=== PATIENT | female | born 1970 | race Two or more races ===

== ENCOUNTER 2019-04-30 15:20 | Emergency (ER) | payer MEDICAID ==
[~2019-04-30] VITALS: Ht 157.5 cm; Wt 207.7 kg
[~2019-04-30 15:20] MED LIST: IBUPROFEN600 MG ORAL; NITROFURANTOIN100 M2 ORAL; ONDANSETRON ODT4 MG BC; TRAMADOL HCL50 MG ORAL; TYLENOL325 MG ORAL
--- NOTE | 2019-04-30 15:30 | NUR ---
ED Nurse Note: Pt ambulated to ED with the c/o of fever, chills and lowback pain started last night. Pt is AOx4, able to verbalize her needs and able to follow commands. Placed pt on bed and gown, hooked to quality assurance monitor final.
--- NOTE | 2019-04-30 15:38 | Emergency Room Report ---
History of Present Illness General Chief Complaint: Lower Back Pain or Injury Source: Patient Present Illness HPI Patient is a 48-year-old female who presents after increased left-sided flank pain. She reports having dysuria for several weeks. She reports having worsening flank pain associated with some fever since yesterday. She had been taking Aleve without any improvement. She denies any headache or cough. She denies vomiting. She states she is not taking any other medications. Reports having severe flank pain. She denies being . Allergies: Coded Allergies: No Known Allergies (Unverified , 03/02/18) Patient History Past Medical History: see triage record Last Menstrual Period: 04/27/19 Now: No Reviewed Nursing Documentation: PMH: Agreed; PSxH: Agreed Nursing Documentation-PMH Past Medical History: No History, Except For Hx Hypertension: Yes Review of Systems All Other Systems: negative except mentioned in HPI Physical Exam Vital Signs Date Time Temp Pulse Resp B/P (MAP) Pulse Ox O2 Delivery O2 Flow Rate FiO2 04/30/19 15:29 98.2 116 19 162/98 (119) 99 Room Air Sp02 EP Interpretation: reviewed, normal General Appearance: normal inspection, well appearing, no apparent distress, alert, GCS 15, non-toxic Head: atraumatic ENT: normal ENT inspection, hearing grossly normal, normal voice Neck: normal inspection, full range of motion, supple, no bony tend Respiratory: normal inspection, lungs clear, normal breath sounds, no respiratory distress, no retraction, no wheezing Cardiovascular #1: regular rate, rhythm, no edema Gastrointestinal: normal inspection, normal bowel sounds, non tender, soft, no guarding, no hernia Genitourinary: no CVA tenderness Musculoskeletal: normal inspection, back normal, normal range of motion Neurologic: alert, motor strength/tone normal, car dealer III-XII nml as tested, responsive, speech normal, normal inspection Psychiatric: normal inspection, judgement/insight normal, mood/affect normal Medical Decision Making Diagnostic Impression: Primary Impression: UTI (urinary tract infection) ER Course Patient is a 48-year-old female presents after increased left-sided flank pain associate with dysuria. Differential diagnosis include was not limited to urinary tract infection, pyelonephritis, dehydration, diverticulitis among others. Because of complexity of patient's case laboratory tests and imaging studies were ordered. Patient was noted to have some pain to the left CVA. She was given IV fluids as well as IV antibiotics. Patient appears to have some evidence of urinary infection. She was given Rocephin IV. She was also given antipyretics. She was noted to have some improvement. She was given prescription for medications for further antibiotics. She is advised to follow- up for recheck in the next 1 to 2 days with her primary care physician. She is advised to return if worse. Last Vital Signs Date Time Temp Pulse Resp B/P (MAP) Pulse Ox O2 Delivery O2 Flow Rate FiO2 04/30/19 15:29 98.2 116 19 162/98 (119) 99 Room Air Status: improved Disposition: HOME, SELF-CARE Condition: Stable Scripts Hydrocodone Bit/Acetaminophen 5-325* (NORCO 5-325*) 1 Each Tablet 1 TAB ORAL Q6H PRN for For Pain, #10 TAB 0 Refills Prov: Vinod Mccall MD 04/30/19 Cephalexin* (KEFLEX*) 500 Mg Capsule 500 MG ORAL EVERY 6 HOURS, #28 CAP Prov: Vinod Mccall MD 04/30/19 Vinod Mccall MD Apr 30, 2019 15:38
[2019-04-30] MEDS ORDERED: Ketorolac 30mg Inj IV ONE (15:45)
[2019-04-30] MEDS ORDERED: cefTRIAXone 2 GM in NS 110 ML IV ONE (15:45)
[2019-04-30] MEDS ORDERED: Acetaminophen 500mg (ES) tab ORAL ONE (15:45)
[2019-04-30 16:17] LABS: EOSINOPHILS % (AUTO) 0.1 % (0.0-3.0); HEMATOCRIT 38.8 % (37.0-47.0); HEMOGLOBIN 13.5 G/DL (12.0-16.0); LYMPHOCYTES % (AUTO) 8.1 % (20.0-45.0); MEAN CORPUSCULAR VOLUME 89 FL (80-99); MONOCYTES % (AUTO) 7.9 % (1.0-10.0); NEUTROPHILS % (AUTO) 82.8 % (45.0-75.0); PLATELET COUNT 260 K/UL (150-450); RED BLOOD COUNT 4.37 M/UL (4.20-5.40); RED CELL DISTRIBUTION WIDTH 11.2 % (11.6-14.8); WHITE BLOOD COUNT 10.7 K/UL (4.8-10.8)
--- NOTE | 2019-04-30 16:30 | NUR ---
ED Nurse Note: Pt on bed, awake and alert. Still on IV hydration and antibiotics, tolerated and infusing well. Will continue to monitor.
[2019-04-30 16:45] VITALS: BP 139/88
[2019-04-30 16:51] LABS: APPEARANCE,URINE SLIGHTLY CLOUDY; BILIRUBIN, URINE NEGATIVE (NEGATIVE); COLOR,URINE PALE YELLOW; GLUCOSE, URINE (UA) NEGATIVE (NEGATIVE); KETONES,URINE NEGATIVE (NEGATIVE); LEUKOCYTE ESTERASE ,URINE 2+ (NEGATIVE); NITRITE,URINE NEGATIVE (NEGATIVE); PH,URINE 6 (4.5-8.0); PROTEIN,URINE 1+ (NEGATIVE); UROBILINOGEN,URINE NORMAL MG/DL (0.0-1.0)
[2019-04-30 16:52] LABS: ANION GAP 11 mmol/L (5-15); BLOOD UREA NITROGEN 13 mg/dL (7-18); CALCIUM 8.8 MG/DL (8.5-10.1); CARBON DIOXIDE 26 MMOL/L (21-32); CHLORIDE 102 MMOL/L (98-107); CREATININE 0.8 MG/DL (0.55-1.30); POTASSIUM 3.2 MMOL/L (3.5-5.1); SODIUM 139 MMOL/L (136-145)
[2019-04-30] MEDS ORDERED: Cephalexin 500mg cap ORAL ONE (17:00)
[2019-04-30 17:04] LABS: ALANINE AMINOTRANSFERASE 21 U/L (12-78); ALBUMIN 3.9 G/DL (3.4-5.0); ALBUMIN/GLOBULIN RATIO 1.1 (1.0-2.7); ALKALINE PHOSPHATASE 61 U/L (46-116); ASPARTATE AMINO TRANSFERASE 18 U/L (15-37); BILIRUBIN,TOTAL 0.5 MG/DL (0.2-1.0); CKMB 1.4 NG/ML (0.0-3.6); CREATINE KINASE 151 U/L (26-308)
[2019-04-30] MEDS ORDERED: CEPHALEXIN500 MG ORAL (17:08)
[2019-04-30] MEDS ORDERED: NORCO 5-325 TA1 EACH ORAL (17:08)
--- NOTE | 2019-04-30 17:20 | NUR ---
ED Nurse Note: Pt denied pain upon assessment. Pt is calm; VSS, no signs of any respiratory distress. latest temp is 100F, ERMD aware.
--- NOTE | 2019-04-30 17:40 | NUR ---
ER DISCHARGE NOTE: Pt is cleared to be discharged per ERMD, pt is aox4, on room air, with stable vital signs. pt was given dc and prescription instructions, pt was able to verbalize understanding, pt id band and iv site removed without complications. pt is able to ambulate with steady gait. pt took all belongings. Pt left ED with significant other.
[2019-04-30 17:46] VITALS: BP 129/84
== END 2019-04-30 17:40 | disposition home or self-care (01) ==
LOC: EMR 16:06
DX: N39.0 Urinary tract infection, site not specified (principal); I10 Essential (primary) hypertension
CPT/HCPCS: 36415; 80053; 81003; 81025; 82550; 82553; 83605; 84484; 85025; 87040; 87086; 87181; 93005; 96365; 96375; J0696; J1885; J7030; Z7502; 99284; J8499

== ENCOUNTER 2020-04-28 11:28 | Emergency (ER) | payer MEDICAID ==
[~2020-04-28] VITALS: Ht 157.5 cm; Wt 68.0 kg
[~2020-04-28 11:28] MED LIST changes: +CEPHALEXIN500 MG ORAL; +IBUPROFEN600 M1 ORAL; +NORCO 5-325 TA1 EACH ORAL
--- NOTE | 2020-04-28 11:51 | NUR ---
ED Nurse Note: Pt walked in with s/o who was diagnosed with covid on the 04/25. She walks with a steady gait. SPO2 is 100% on RA. She states that she has been sick with 'the flu' for 3 days. She states that she has not taken a flu test and that he has generalized body aches and a headaches for the last three days. She is tachypenic RR 30 in assement and has moist skin. She is on the tele monitor HR 106. Cohorting utilized of S/O who cohabitates with the pt.
[2020-04-28 11:57] VITALS: BP 161/101
[2020-04-28] MEDS ORDERED: DiphenhydrAMINE 50mg/ml Inj IVP ONE (12:45)
[2020-04-28] MEDS ORDERED: Metoclopramide 10mg/2ml Inj IVP ONE (12:45)
[2020-04-28] MEDS ORDERED: Ketorolac 30mg Inj IV ONE (12:45)
[2020-04-28 13:30] LABS: EOSINOPHILS % (AUTO) 2.2 % (0.0-3.0); HEMATOCRIT 39.5 % (37.0-47.0); HEMOGLOBIN 13.6 G/DL (12.0-16.0); LYMPHOCYTES % (AUTO) 12.3 % (20.0-45.0); MEAN CORPUSCULAR VOLUME 89 FL (80-99); MONOCYTES % (AUTO) 8.4 % (1.0-10.0); NEUTROPHILS % (AUTO) 76.1 % (45.0-75.0); PLATELET COUNT 277 K/UL (150-450); RED BLOOD COUNT 4.42 M/UL (4.20-5.40); RED CELL DISTRIBUTION WIDTH 12.6 % (11.6-14.8)
[2020-04-28 13:39] LABS: ANION GAP 9 mmol/L (5-15); BLOOD UREA NITROGEN 12 mg/dL (7-18); CALCIUM 8.5 MG/DL (8.5-10.1); CARBON DIOXIDE 24 MMOL/L (21-32); CHLORIDE 105 MMOL/L (98-107); CREATININE 0.8 MG/DL (0.55-1.30); POTASSIUM 3.5 MMOL/L (3.5-5.1); SODIUM 138 MMOL/L (136-145)
--- NOTE | 2020-04-28 13:44 | NUR ---
ED Nurse Note:urine sent to labs
[2020-04-28 13:54] LABS: ALANINE AMINOTRANSFERASE 24 U/L (12-78); ALBUMIN 3.8 G/DL (3.4-5.0); ALBUMIN/GLOBULIN RATIO 1.1 (1.0-2.7); ALKALINE PHOSPHATASE 72 U/L (46-116); ASPARTATE AMINO TRANSFERASE 18 U/L (15-37); BILIRUBIN,TOTAL 0.4 MG/DL (0.2-1.0); CREATINE KINASE 174 U/L (26-308); FERRITIN 31 NG/ML (8-388); LACTATE DEHYDROGENASE 147 U/L (81-234)
--- NOTE | 2020-04-28 14:19 | Diagnostic Imaging Report ---
Indication: Dyspnea Technique: One view of the chest Comparison: none Findings: Lungs and pleural spaces are clear. Heart size is normal. Impression: No acute process
--- NOTE | 2020-04-28 14:20 | Emergency Room Report ---
History of Present Illness General Chief Complaint: Upper Respiratory Illness Source: Patient Present Illness HPI The patient presents with cough and shortness of breath. Her tested positive for Covid recently. He has been ill for 4 days. She has been ill for 3 days. She has generalized malaise and weakness. She is felt feverish. She denies any nausea, vomiting or diarrhea. There is no dysuria. There are no skin rashes. She is quite anxious as she is worried about the diagnosis of Covid. Her cough is minimally productive. The patient has heard herself wheezing. She rates the pain in her body 8/10 at this time. It is generalized aching. Last menstruation 1 week ago and normal for her. No sore throat, palpitations, abdominal pain, visual changes, dizziness, headach e. 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: No Patient History Past Medical History: see triage record Social History: Denies: smoking Social History Narrative Last Menstrual Period: 1 week ago Now: No Reviewed Nursing Documentation: PMH: Agreed; PSxH: Agreed Nursing Documentation-PMH Past Medical History: No History, Except For Hx Hypertension: Yes Review of Systems All Other Systems: negative except mentioned in HPI Physical Exam Vital Signs Date Time Temp Pulse Resp B/P (MAP) Pulse Ox O2 Delivery O2 Flow Rate FiO2 04/28/20 11:47 96.1 114 22 167/106 (126) 99 Room Air Sp02 EP Interpretation: reviewed, normal General Appearance: well appearing, no apparent distress, GCS 15, other - Anxious Head: normocephalic Eyes: bilateral eye normal inspection, bilateral eye PERRL, bilateral eye EOMI ENT: normal pharynx, moist mucus membranes Neck: supple Respiratory: chest non-tender, lungs clear, normal breath sounds Cardiovascular #1: regular rate, rhythm Cardiovascular #2: 2+ radial (L) Gastrointestinal: normal inspection, normal bowel sounds, non tender, no mass, non-distended Musculoskeletal: back normal, normal range of motion, no calf tenderness, gait/station normal Neurologic: alert, oriented x3, grossly normal Psychiatric: anxious Skin: no rash, warm/dry Medical Decision Making Diagnostic Impression: Primary Impression: Upper respiratory tract infection due to COVID-19 virus Additional Impression: Bronchospasm ER Course The patient presents with cough subjective fevers and anxiety after being exposed to her with Covid. Differential includes COVID-19 pneumonia, bronchospasm, other viral upper respiratory infection, anxiety amongst others. Evaluation with EKG, chest x-ray and labs. Patient will be evaluated for inflammatory markers. The patient is treated with Toradol, Reglan and Benadryl. EKG without injury. Chest x-ray no infiltrates. Labs unremarkable except for minimally elevated white count. Inflammatory markers are negative. Patient greatly improved with treatment in the emergency department. This patient was evaluated in the context of the global COVID-19 pandemic, which necessitated consideration that the patient might be at risk for infection with the [id number] virus that causes COVID-19. Institutional protocols and algorithms that pertain to the evaluation of patients at risk for COVID-19 and the state of rapid change based on information released by multiple regulatory bodies including the CDC and federal and state organizations. These policies and algorithms were followed during the patient's care in the ED. Discussed treatment plan, quarantine and follow-up. Patient stable for outpatient observation and treatment. Laboratory Tests Test 04/28/20 12:38 04/28/20 12:55 White Blood Count 11.0 K/UL (4.8-10.8) H Red Blood Count 4.42 M/UL (4.20-5.40) Hemoglobin 13.6 G/DL (12.0-16.0) Hematocrit 39.5 % (37.0-47.0) Mean Corpuscular Volume 89 FL (80-99) Mean Corpuscular Hemoglobin 30.7 PG (27.0-31.0) Mean Corpuscular Hemoglobin Concent 34.4 G/DL (32.0-36.0) Red Cell Distribution Width 12.6 % (11.6-14.8) Platelet Count 277 K/UL (150-450) Mean Platelet Volume 9.3 FL (6.5-10.1) Neutrophils (%) (Auto) 76.1 % (45.0-75.0) H Lymphocytes (%) (Auto) 12.3 % (20.0-45.0) L Monocytes (%) (Auto) 8.4 % (1.0-10.0) Eosinophils (%) (Auto) 2.2 % (0.0-3.0) Basophils (%) (Auto) 1.0 % (0.0-2.0) Prothrombin Time 10.7 SEC (9.30-11.50) Prothrombin Time INR 1.0 (0.9-1.1) Activated Partial Thromboplast Time 24 SEC (23-33) Sodium Level 138 MMOL/L (136-145) Potassium Level 3.5 MMOL/L (3.5-5.1) Chloride Level 105 MMOL/L (98-107) Carbon Dioxide Level 24 MMOL/L (21-32) Anion Gap 9 mmol/L (5-15) Blood Urea Nitrogen 12 mg/dL (7-18) Creatinine 0.8 MG/DL (0.55-1.30) Estimated Glomerular Filtration Rate > 60 mL/min (>60) Glucose Level 108 MG/DL (74-106) H Calcium Level 8.5 MG/DL (8.5-10.1) Magnesium Level 2.0 MG/DL (1.8-2.4) Ferritin 31 NG/ML (8-388) Total Bilirubin 0.4 MG/DL (0.2-1.0) Aspartate Amino Transferase (AST) 18 U/L (15-37) Alanine Aminotransferase (ALT) 24 U/L (12-78) Alkaline Phosphatase 72 U/L (46-116) Lactate Dehydrogenase 147 U/L (81-234) Total Creatine Kinase 174 U/L (26-308) Troponin I 0.004 ng/mL (0.000-0.056) C-Reactive Protein, Quantitative 2.0 mg/dL (0.00-0.90) H Pro-B-Type Natriuretic Peptide Pending Total Protein 7.3 G/DL (6.4-8.2) Albumin 3.8 G/DL (3.4-5.0) Globulin 3.5 g/dL Albumin/Globulin Ratio 1.1 (1.0-2.7) Lipase 114 U/L (73-393) EKG Diagnostic Results Rate: normal Rhythm: NSR ST Segments: no acute changes Rhythm Strip Diag. Results EP Interpretation: yes Rhythm: NSR, no PVC's, no ectopy Chest X-Ray Diagnostic Results Chest X-Ray Diagnostic Results : Chest X-Ray Ordered: Yes # of Views/Limited/Complete: 1 View Indication: Shortness of Breath EP Interpretation: Yes Interpretation: no consolidation, no effusion, no pneumothorax Impression: No acute disease Electronically Signed by: Electronically signed by Zachary Resendiz MD Last Vital Signs Date Time Temp Pulse Resp B/P (MAP) Pulse Ox O2 Delivery O2 Flow Rate FiO2 04/28/20 19:05 98.7 92 20 110/82 100 Room Air Status: improved Disposition: HOME, SELF-CARE Condition: Improved Scripts Guaifenesin/Codeine Phos* (ROBITUSSIN AC*) 118 Ml Liquid 5 ML ORAL Q6H PRN for For Cough, #118 ML 0 Refills Prov: Zachary Resendiz MD 04/28/20 Prednisone* (PREDNISONE*) 20 Mg Tablet 40 MG ORAL DAILY, #10 TAB Prov: Zachary Resendiz MD 04/28/20 Albuterol Sulfate* (Albuterol Sulfate Hfa*) 8.5 Gm Hfa.aer.ad 2 PUFF INH Q6H, #1 INH Prov: Zachary Resendiz MD 04/28/20 Referrals: [facility],REFERRING (PCP) Zachary Resendiz MD Apr 28, 2020 14:20
[2020-04-28] MEDS ORDERED: PREDNISONE20 MG ORAL (15:10)
[2020-04-28] MEDS ORDERED: GUAIFENESIN-CO118 M1 ORAL (15:10)
[2020-04-28] MEDS ORDERED: ALBUTEROL SULF8.5 G1 INH (15:10)
--- NOTE | 2020-04-28 15:30 | NUR ---
ER DISCHARGE NOTE: Patient is cleared to be discharged per ERMD, pt is aox4, on room air, with stable vital signs. pt was given dc and prescription instructions, pt was able to verbalize understanding, pt id band and iv site removed without complications. pt is able to ambulate with steady gait. pt took all belongings.
[2020-04-28 19:05] VITALS: BP 110/82
== END 2020-04-28 15:30 | disposition home or self-care (01) ==
LOC: EMR 12:57
DX: U07.1 COVID-19 (principal); J06.9 Acute upper respiratory infection, unspecified; J98.01 Acute bronchospasm; I10 Essential (primary) hypertension
CPT/HCPCS: 36415; 71045; 80053; 82550; 82728; 83615; 83690; 83735; 83880; 84484; 85025; 85610; 85730; 86140; 93005; 96361; 96374; 96375; J1200; J1885; J2765; J7030; Z7502; 99284